=== PATIENT | female | born 1965 | race Caucasian/White ===

== ENCOUNTER 2016-08-27 15:45 | Emergency (ER) | payer SELFPAY ==
[~2016-08-27] VITALS: Wt 53.0 kg
[2016-08-27] MEDS ORDERED: MECLIZINE 12.5 MG TAB PO ONE (16:30)
--- NOTE | 2016-08-27 16:36 | ERD ---
ER Documentation Chief Complaint Date/Time DATE: 08/27/16 TIME: 16:33 Chief Complaint dizziness with no neuro deficit . no trauma noted onset few months HPI This patient is a 51-year-old female with no significant medical history presenting to the emergency department for vertigo which is been ongoing for the past 6 months intermittently however it has worsened over the past 2 days. The patient states that whenever she bends over and stands up too quickly she feels the entire room spinning. Additionally the patient reports burning on urination which is been ongoing intermittently for the past several months. The patient denies any nausea, vomiting, diarrhea, fever, chills, chest pain, and shortness of breath. ROS All systems reviewed and are negative except as per history of present illness. Medications Home Meds Active Scripts Meclizine Hcl* (Antivert*) 12.5 Mg Tab, 12.5 MG PO Q6H Y for DIZZINESS, #20 TAB Prov:JENNIFFER CARTER PA-C 08/27/16 Allergies Allergies: Coded Allergies: No Known Allergy (Unverified , 08/27/16) PMhx/Soc Medical and Surgical Hx: pt denies Medical Hx, pt denies Surgical Hx Hx Alcohol Use: No Hx Substance Use: No Hx Tobacco Use: No Smoking Status: Never smoker FmHx Noncontributory for chief complaint Physical Exam Vitals Vital Signs Date Time Temp Pulse Resp B/P Pulse Ox O2 Delivery O2 Flow Rate FiO2 08/27/16 15:48 98.2 56 20 160/71 98 Physical Exam INITIAL VITAL SIGNS: Reviewed by me. GENERAL: Alert and interactive. No acute distress. HEAD: Head is normocephalic and atraumatic. EYES: EOMI. No scleral icterus. No conjunctival injection. ENT: Moist mucosa. NECK: Supple. Full range of motion. RESPIRATORY: Normal respiratory effort. Clear breath sounds bilaterally. No wheezing, rales, or rhonchi. CV: Regular rate and rhythm. Normal S1 S2. No S3 or S4. No murmurs. ABDOMEN: Soft, non-distended, non-tender. No guarding. No rebound. No masses. EXTREMITIES: No deformity. SKIN: Warm and dry. NEUROLOGIC: Upon attempting the Marianna-Hallpike maneuver the patient felt very dizzy. Alert and oriented x 4. Speech is normal. Moves all extremities equally. No motor or sensory deficits noted. Results 24 hrs Laboratory Tests Test 08/27/16 16:41 Bedside Urine Blood 2+ Bedside Urine Glucose (UA) Negative Bedside Urine Ketones (LAB) Negative Bedside Urine Leukocyte Esterase (L Negative Bedside Urine Nitrite (LAB) Negative Bedside Urine Protein (LAB) Negative Bedside Urine pH (LAB) 6.5 Current Medications Medications (Trade) Dose Ordered Sig/May Route PRN Reason Start Time Stop Time Status Last Admin Dose Admin Meclizine HCl (Antivert) 25 mg ONCE ONCE PO 08/27/16 16:30 08/27/16 17:32 DC 08/27/16 16:37 Procedures/MDM 51-year-old female presenting to the emergency department secondary to complaints of vertigo which have been ongoing intermittently for the past 6 months however has worsened over the past 2 days. On physical examination the patient is unable to tolerate the Marianna-Hallpike maneuver secondary to feeling the room is spinning. She is tearful when attempting to do the maneuver. UA results reviewed. There are no signs of urinary tract infection. I have ordered 25 mg of p.o. meclizine in the department. On reevaluation the patient was feeling improved and she was able to ambulate within the department. Primary diagnosis: Benign positional vertigo The patient was given a prescription for 25 mg p.o. meclizine for management of her symptoms at home. The patient was advised to follow-up with her primary care physician for follow- up on this matter. She was advised to return to the emergency department immediately if her symptoms continued or worsened. She understands this information and she agrees with the assessment and plan. All questions and concerns were addressed Departure Diagnosis: Primary Impression: Benign positional vertigo Condition: Stable Additional Instructions: No mas mejor en 2-3 jane, regresar. Mas peor en 24 horas, regresear rapidamente. Ir a doctor primario in 5-7 jane. Usar instrucciones cuando leonid medicamento. JENNIFFER CARTER PA-C Aug 27, 2016 16:36
[2016-08-27 16:41] LABS: URINE BLOOD (Dip) POC 2+ (NEGATIVE)
[2016-08-27] MEDS ORDERED: MECL12.574 PO (17:33)
== END 2016-08-27 17:44 | disposition home or self-care (01) ==
LOC: FTE 15:45
DX: H81.10 Benign paroxysmal vertigo, unspecified ear (principal)
CPT/HCPCS: 81003; 99283